=== PATIENT | female | born 1980 | race Caucasian/White ===

== ENCOUNTER 2018-11-27 09:13 | Day surgery (SDC) | payer MEDICAID ==
[2018-11-21 14:39] LABS: BASOPHIL % 0.7 % (0-2); PLATELET COUNT 221 x10^3mcL (130-400); RED CELL DISTRIBUTION WIDTH 12.6 % (11.5-14.5)
[2018-11-21 14:53] LABS: ALBUMIN 4.1 g/dL (3.4-5.0); ALKALINE PHOSPHATASE 68 U/L (46-116); ALT/SGPT 60 U/L (14-59); AST/SGOT 26 U/L (15-37); BILIRUBIN TOTAL 0.2 mg/dL (0.20-1.00); CALCIUM 9.1 mg/dL (8.5-10.1); CARBON DIOXIDE 32.5 mmol/L (21-32); CHLORIDE SERUM 106 mmol/L (98-107); CREATININE SERUM 0.7 mg/dL (0.6-1.0); GFR1 > 60 mL/min; GLUCOSE SERUM 98 mg/dL (74-106); POTASSIUM SERUM 3.9 mmol/L (3.5-5.1); SODIUM SERUM 143 mmol/L (136-145); TOTAL PROTEIN, SERUM 7.1 g/dL (6.4-8.2)
[~2018-11-27] VITALS: Ht 165.1 cm; Wt 74.8 kg
[2018-11-27 09:58] VITALS: BP 107/73
[2018-11-27 18:50] VITALS: BP 110/71
== END 2018-11-27 18:45 | disposition home or self-care (01) ==
LOC: DS 09:13
PROVIDERS: Surgery
DX: C50.211 Malignant neoplasm of upper-inner quadrant of right female breast (principal); C50.111 Malignant neoplasm of central portion of right female breast; E66.3 Overweight; J45.909 Unspecified asthma, uncomplicated; E11.22 Type 2 diabetes mellitus with diabetic chronic kidney disease; I10 Essential (primary) hypertension; G40.909 Epilepsy, unspecified, not intractable, without status epilepticus; F03.90 Unspecified dementia, unspecified severity, without behavioral disturbance, psychotic disturbance, mood disturbance, and anxiety; F17.210 Nicotine dependence, cigarettes, uncomplicated; Z80.3 Family history of malignant neoplasm of breast; Z68.27 Body mass index [BMI] 27.0-27.9, adult; Z90.49 Acquired absence of other specified parts of digestive tract; Z87.59 Personal history of other complications of pregnancy, childbirth and the puerperium
CPT/HCPCS: 88329; 88344; 88361; J0690; J2175; J2250; J2405; J2704; J3010; J3490; J7120; Q9968